=== PATIENT | female | born 1960 | race African-American/Black ===

== ENCOUNTER 2016-06-29 07:59 | Emergency (ER) | payer BC ==
[~2016-06-29] VITALS: Wt 71.0 kg
[~2016-06-29 07:59] MED LIST: IBUP-1542 PO
--- NOTE | 2016-06-29 08:38 | ERD ---
ER Documentation Chief Complaint Date/Time DATE: 06/29/16 TIME: 08:33 Chief Complaint L ANKLE PAIN AND RIGHT ARM PAIN FROM A FALL LAST NIGHT. NO LOC HPI Patient is a 55-year-old female with no past medical history who presents to the ED with left ankle and foot pain and right arm pain after sustaining a fall last night. She states that she tripped on her foot and fell down 7 stairs. She denies hitting her head, passing out or losing consciousness or blacking out. She denies head pain or neck pain. She complains of right arm pain above her elbow. She is able to move her arm without difficulty denies elbow, shoulder, wrist or hand pain. Denies swelling to her arm. She also complains of left lateral malleolus ankle pain and foot pain. She is able to walk with difficulty and pain when she applies pressure to her foot. Denies radiation of pain. Denies calf pain or swelling. Denies pain in her knee or hip. Pain is only localized at the ankle and foot. Denies numbness or tingling. Denies fever or chills. Denies cough, shortness of breath or difficulty breathing. She has been taking Excedrin which has helped with her pain. No other complaints. ROS All systems reviewed and are negative except as per history of present illness. Medications Home Meds Active Scripts Hydrocodone/Acetaminophen ([place] 5-325 Tablet) 1 Each Tablet, 1 TAB PO Q6H Y for PAIN, #5 TAB Prov:SIMON KIM PA-C 06/29/16 Naproxen* (Naprosyn*) 500 Mg Tablet, 500 MG PO BID Y for PAIN AND/OR INFLAMMATION, #30 TAB Prov:SIMON KIM PA-C 06/29/16 Ibuprofen* (Motrin*) 600 Mg Tab, 600 MG PO Q6H Y for PAIN AND OR ELEVATED TEMP, #30 Prov:RONIT CARMONA NP 10/30/14 Allergies Allergies: Coded Allergies: No Known Allergy (Unverified , 10/30/14) PMhx/Soc History of Surgery: Yes (c section) Anesthesia Reaction: No Hx Neurological Disorder: No Hx Respiratory Disorders: No Hx Cardiac Disorders: No Hx Psychiatric Problems: No Hx Miscellaneous Medical Probl: No Hx Alcohol Use: Yes (2 glasses wine/day) Hx Substance Use: No Hx Tobacco Use: No Smoking Status: Never smoker FmHx Family History: No coronary disease, No diabetes, No other Physical Exam Vitals Vital Signs Date Time Temp Pulse Resp B/P Pulse Ox O2 Delivery O2 Flow Rate FiO2 06/29/16 11:00 98.2 78 20 150/80 98 06/29/16 08:02 98.7 90 20 160/81 98 Physical Exam GENERAL: Well-developed, well-nourished female. Appears in no acute distress. LUNG: Clear to auscultation bilaterally. No rhonchi, wheezing, rales or coarse breath sounds. HEART: Regular rate and rhythm. No murmurs, rubs or gallops. Extremities: Equal pulses bilaterally. No peripheral clubbing, cyanosis or edema. No unilateral leg swelling. ORTHO: tenderness to lateral left malleolus and tenderness to base of 5th metatarsal. no lacerations or open wounds. negative deyanira sign. no calf swelling. no erythema. rom intact. right arm no swelling or tenderness or erythema.. no pain in shoulder, elbow or wrist. no snuffbox tenderness. rom in tact with no difficulty. no tenderness to proximal fibula pain. NEUROLOGIC: Alert and oriented. Moving all four extremities. 5/5 strength in all extremities. Normal speech. nonsteady gait. SKIN: Normal color. Warm and dry. No rashes or lesions. Capillary refill < 2 seconds Procedures/MDM ER COURSE: I kept the patient and/or family informed of laboratory and diagnostic imaging results throughout the emergency room course. EKG, MONITORS, & DIAGNOSTIC IMAGING: [place] [id number] Radiology Main Line: [phone] DIAGNOSTIC IMAGING REPORT Patient: VON GARZA : 1960 Age: 55 Sex: F MR #: [id number] DOS: 06/29/1625 Ordering MD: SIMON KIM PA-C Location: [facility] Room/Bed: PROCEDURE: XR Ankle. CLINICAL INDICATION: Fall, pain TECHNIQUE: 3 views of the left ankle were performed. COMPARISON: None. FINDINGS: Lateral ankle soft tissue swelling is noted. No acute fracture or dislocation is identified. There is no radiodense foreign body. Bony mineralization is normal. IMPRESSION: 1. Lateral ankle soft tissue swelling. 2. No evidence of acute fracture or dislocation. RPTAT: QQ .Fred White MD, MD Date Time Electronically viewed and signed by .Fred White MD, MD on 06/29/2016 09: 53 .R/ CC: SIMON KIM PA-C [place] [id number] Radiology Main Line: [phone] DIAGNOSTIC IMAGING REPORT Patient: VON GARZA : 1960 Age: 55 Sex: F MR #: [id number] DOS: 06/29/16 0825 Ordering MD: SIMON KIM PA-C Location: [facility] Room/Bed: PROCEDURE: XR Foot. CLINICAL INDICATION: Fall, pain TECHNIQUE: Three views of the left foot are available for review. COMPARISON: None available FINDINGS: There is acute, mildly displaced avulsion fracture of the fifth metatarsal proximally (pseudo - Nunez fracture). No dislocation is identified. There is no radiodense foreign body. Bony mineralization is normal. IMPRESSION: 1. Acute avulsion fracture of the fifth metatarsal proximally (pseudo-Nunez fracture). RPTAT: QQ .Fred White MD, MD Date Time Electronically viewed and signed by .Fred White MD, MD on 06/29/2016 09: 54 .R/ CC: SIMON KIM PA-C Procedure" Walking boot. Neurovascularly intact post walking boot placement with good fit MEDICAL DECISION MAKING: This is a 55-year-old female who presents with left ankle pain and right arm pain after sustaining a fall. Vital signs were reviewed. Patient is afebrile. Patient is not hypoxic. Patient is not toxic or ill-appearing. Temperature 98.7, pulse 90. Patient has blood pressure 160/81. X-ray is read by radiologist shows an acute avulsion fracture of the fifth metatarsal proximally , pseudo-Nunez fracture. patient has a pseudo nunez fracture. Low suspicion for dislocation, septic joint, compartment syndrome, osteomyelitis, avascular necrosis, DVT, Achilles tendon rupture, cellulitis. At this time, unable to rule out any tendon and ligament injuries. She has no pain above her ankle and no other x-rays of her left leg are warranted. Her right arm is likely due to ecchymosis and bruising. I have low suspicion for any fracture dislocation I do not think any x-rays are needed at this time. She has no pain in her shoulder, elbow, wrist or snuffbox. Her slightly elevated blood pressure is likely related to pain. She does not have a history of hypertension and I have low suspicion for hypertensive urgency, emergency or endorgan damage. Low suspicion for intracranial hemorrhage, meningitis, intracranial mass, concussion , temporal arteritis, stroke, elevated intracranial pressure, seizure. DISCHARGE: At this time, patient is stable for discharge and outpatient management with no new complaints during the ER course. Patient was sent home with Twin. Patient refused crutches as she has a walker with wheels and would prefer using that and crutches. I also advised patient to follow-up with her primary care provider in regards to her blood pressure for better management. Patient will be discharged home with instructions to recheck for new or worsening symptoms such as fever, nausea, weakness, LOC and to follow up with primary care in the next 1-2 days. Patient was advised to return to the ER for any new or worsening symptoms. Plan was discussed and patient and/or family understands and agrees. Home instructions were given. Departure Diagnosis: Primary Impression: Ankle pain Laterality: left Chronicity: acute Qualified Code: M25.572 - Acute left ankle pain Additional Impression: Nunez fracture Encounter type: initial encounter Fracture type: closed Laterality: left Qualified Code: S92.352A - Nunez fracture, left, closed, initial encounter Condition: Stable SIMON KIM PA-C Jun 29, 2016 08:38
--- NOTE | 2016-06-29 09:53 | RADRPT ---
PROCEDURE: XR Ankle. CLINICAL INDICATION: Fall, pain TECHNIQUE: 3 views of the left ankle were performed. COMPARISON: None. FINDINGS: Lateral ankle soft tissue swelling is noted. No acute fracture or dislocation is identified. There is no radiodense foreign body. Bony mineralization is normal. IMPRESSION: 1. Lateral ankle soft tissue swelling. 2. No evidence of acute fracture or dislocation. RPTAT: QQ .Fred White MD, MD Date Time Electronically viewed and signed by .Fred White MD, MD on 06/29/2016 09:53 .R/
--- NOTE | 2016-06-29 09:55 | RADRPT ---
PROCEDURE: XR Foot. CLINICAL INDICATION: Fall, pain TECHNIQUE: Three views of the left foot are available for review. COMPARISON: None available FINDINGS: There is acute, mildly displaced avulsion fracture of the fifth metatarsal proximally (pseudo - Stephen s fracture). No dislocation is identified. There is no radiodense foreign body. Bony mineralizati on is normal. IMPRESSION: 1. Acute avulsion fracture of the fifth metatarsal proximally (pseudo-Lassiter fracture). RPTAT: QQ .Fred White MD, MD Date Time Electronically viewed and signed by .Fred White MD, MD on 06/29/2016 09:54 .R/
[2016-06-29] MEDS ORDERED: NAPR-260 PO (10:12)
[2016-06-29] MEDS ORDERED: HYDR-906 PO (10:13)
[2016-06-29 11:00] VITALS: BP 150/80; PULSE 78; RESP 20; TEMP 98.2
== END 2016-06-29 11:00 | disposition home or self-care (01) ==
LOC: FTE 07:59
DX: S92.352A Displaced fracture of fifth metatarsal bone, left foot, initial encounter for closed fracture (principal); W10.9XXA Fall (on) (from) unspecified stairs and steps, initial encounter; Y92.9 Unspecified place or not applicable
CPT/HCPCS: 73610